=== PATIENT | male | born 1955 | race Caucasian/White ===

== ENCOUNTER 2018-09-14 08:57 | Emergency (ER) | payer OTHER ==
[~2018-09-14] VITALS: Ht 165.1 cm; Wt 99.8 kg
[~2018-09-14 08:57] MED LIST: ACET-7604 PO
--- NOTE | 2018-09-14 08:57 | NUR ---
PATIENT TO BED 4 BY EMS AT THIS TIME.
[2018-09-14 09:07] VITALS: BP 176/86
[2018-09-14] MEDS ORDERED: LISI-420 PO (09:14)
--- NOTE | 2018-09-14 09:18 | NUR ---
PT TO ED BIBA FOR C/O URINARY FREQUENCY X TODAY. PT DENIES BURNING OR PAIN UPON URINATION. PT DENIES ABD PAIN. NO DISTENTION NOTED. PT HAS SLURRED SPEECH FROM CVA X 1 YR AGO. PT PLACED INTO BED, PENDING MD DE LEÓN.
--- NOTE | 2018-09-14 10:17 | NUR ---
# 14 FR Urinary catheter inserted utilizing sterile technique. Immediate return of 100 ml YELLOW/CLEAR urine noted. Urine sample collected and sent to lab. Pt tolerated procedure WELL.
[2018-09-14 10:26] LABS: APPEARANCE,URINE CLEAR (CLEAR); BILIRUBIN,URINE NEGATIVE (NEGATIVE); BLOOD, URINE NEGATIVE (NEGATIVE); COLOR,URINE YELLOW (YELLOW); LEUKOCYTE ESTERASE ,URINE NEGATIVE (NEGATIVE); NITRITE, URINE NEGATIVE (NEGATIVE); UGLUCOSE NEGATIVE (NEGATIVE)
--- NOTE | 2018-09-14 11:26 | NUR ---
PT PENDING D/C. ATTEMPTING TO FIND RIDE HOME FOR PT.
--- NOTE | 2018-09-14 11:30 | NUR ---
MESSAGE LEFT TO , MAURO, BY BURNER OPERATOR. WILL CONTINUE TO ATTEMPT TO CONTACT.
--- NOTE | 2018-09-14 11:51 | NUR ---
2ND ATTEMPT TO CONTACT MAURO, MESSAGE LEFT BY RN. CALLBACK NUMBER: [phone]
--- NOTE | 2018-09-14 12:25 | NUR ---
PRESENT AT BEDSIDE. REVIEWED INFORMATION WITH HER. CONFIRMED SHE WOULD DIRVE PT HOME.
[2018-09-14 12:36] VITALS: BP 176/88
--- NOTE | 2018-09-14 12:36 | NUR ---
Patient discharged with v/s stable. Written and verbal after care instructions given and explained. Patient verbalized understanding. Ambulatory with steady gait. All questions addressed prior to discharge. Advised to follow up with PMD.
== END 2018-09-14 12:36 | disposition home or self-care (01) ==
LOC: MED 08:57
DX: R35.0 Frequency of micturition (principal); E11.9 Type 2 diabetes mellitus without complications; I10 Essential (primary) hypertension; Z79.891 Long term (current) use of opiate analgesic; Z86.73 Personal history of transient ischemic attack (TIA), and cerebral infarction without residual deficits; Z79.899 Other long term (current) drug therapy
CPT/HCPCS: 81003; 87086; 99283; C1758

== ENCOUNTER 2019-12-26 16:10 | Emergency (ER) | payer OTHER ==
[~2019-12-26] VITALS: Ht 170.2 cm; Wt 105.2 kg
[~2019-12-26 16:10] MED LIST changes: +LISI-420 PO
--- NOTE | 2019-12-26 16:16 | NUR ---
BIBA TAKEN TO BED 4
[2019-12-26 16:19] VITALS: BP 146/64
--- NOTE | 2019-12-26 16:27 | NUR ---
biba from assisted living care with c/o frequent urination . Pt aox 4, afibrile ,sce, flat soft abdomen. pmhxs cva , dm.
--- NOTE | 2019-12-26 17:00 | NUR ---
PT STARTED TO YELL STATING WANT TO GO HOME. PT STABLE V/S , AMBULATORY WITH STEADY GAIT.
--- NOTE | 2019-12-26 17:40 | NUR ---
DR POWERS AT BEDSIDE EVALUATING PT.
[2019-12-26 17:56] LABS: APPEARANCE,URINE CLEAR (CLEAR); BILIRUBIN,URINE NEGATIVE (NEGATIVE); BLOOD, URINE NEGATIVE (NEGATIVE); COLOR,URINE YELLOW (YELLOW); LEUKOCYTE ESTERASE ,URINE NEGATIVE (NEGATIVE); NITRITE, URINE NEGATIVE (NEGATIVE); UGLUCOSE NEGATIVE (NEGATIVE)
[2019-12-26 18:40] VITALS: BP 146/64
--- NOTE | 2019-12-26 18:42 | NUR ---
Patient discharged with v/s stable. Written and verbal after care instructions given and explained. Patient verbalized understanding. Ambulatory with to care home. All questions addressed prior to discharge. Advised to follow up with PMD.Dr bliss and cara thacker informed and aware.
== END 2019-12-26 18:42 | disposition home or self-care (01) ==
LOC: MED 16:10
DX: R35.0 Frequency of micturition (principal); E11.9 Type 2 diabetes mellitus without complications; I10 Essential (primary) hypertension; F17.200 Nicotine dependence, unspecified, uncomplicated; Z79.899 Other long term (current) drug therapy; Z86.73 Personal history of transient ischemic attack (TIA), and cerebral infarction without residual deficits
CPT/HCPCS: 81002; 81003; 99283

== ENCOUNTER 2019-12-27 10:05 | Emergency (ER) | payer OTHER ==
--- NOTE | 2019-12-27 10:09 | NUR ---
pt refused to be seen---stated wanted a ride back home informed pt we do not give rides home and if wishes to see doctor for any medical emergency he may. he said no, and ambulated out of the ER with steady gait. and gas charger aware
== END 2019-12-27 10:09 | disposition left against medical advice (07) ==
LOC: MED 10:05
DX: Z53.21 Procedure and treatment not carried out due to patient leaving prior to being seen by health care provider (principal)

== ENCOUNTER 2020-03-20 17:46 | Emergency (ER) | payer OTHER ==
[~2020-03-20] VITALS: Ht 165.1 cm; Wt 95.3 kg
[2020-03-20 17:52] VITALS: BP 145/78
--- NOTE | 2020-03-20 18:10 | NUR ---
PT BIBA FOR FALL PRONELY ON THE STREET. SUPERFICIAL ABRASIONS ON MARGARET KNEE NOTICED. PT DENIES CP, SOB, OR DIZZINESS AT THIS TIME. PT HAS SLURRED SPEECH BUT CAN ANWER QURSTIONS OR FOLLOW COMMANDS. A&OX3 UPON ARRIVAL. PT AFIBRILE , PINK PALPEBRAL CONJUNCTIVA , ANICTERIC SCLERA , SCE , ROUND SOFT ABDOMEN . PMH: HEART ATTACK, STROKE, DM MEDS: PT CANNOT RECALL
--- NOTE | 2020-03-20 18:59 | NUR ---
Pt requesting his be called, attempted to call. No answer. Will attemp to call again.
--- NOTE | 2020-03-20 19:05 | NUR ---
PT WALK OUT OF ROOM YELLING TO JUAN HIS ,PT IS UNCOOPERATIVE , LUIS CAMACHO TALKING TO PT.
[2020-03-20] MEDS ORDERED: NACL 0.9% 500 ML IV ONE (19:15)
--- NOTE | 2020-03-20 19:15 | NUR ---
PATIENT ELOPED FROM FACILITY. DISCHARGE INSTRUCTIONS NOT GIVEN TO PATIENT. DR CADENA NOTIFIED.LUIS MOMIN INFORMED AND AWARE.
== END 2020-03-20 19:15 | disposition left against medical advice (07) ==
LOC: MED 17:46
DX: S80.219A Abrasion, unspecified knee, initial encounter (principal); Z53.21 Procedure and treatment not carried out due to patient leaving prior to being seen by health care provider; X58.XXXA Exposure to other specified factors, initial encounter; Y93.89 Activity, other specified; Y92.89 Other specified places as the place of occurrence of the external cause; Y99.8 Other external cause status
CPT/HCPCS: 93005

== ENCOUNTER 2020-09-22 21:19 | Emergency (ER) | payer OTHER ==
[~2020-09-22] VITALS: Ht 175.3 cm; Wt 95.3 kg
[~2020-09-22 21:19] MED LIST changes: -LISI-420 PO; +LISI-487 PO
[2020-09-22 21:25] VITALS: BP 132/64
[2020-09-22 22:08] LABS: BASOPHILS # (AUTO) 0.1 K/uL (0.00-0.22); BASOPHILS % (AUTO) 0.7 % (0.0-2.0); EOSINOPHILS # (AUTO) 0.1 K/uL (0-0.4); EOSINOPHILS % (AUTO) 1.4 % (0.0-4.0); HEMATOCRIT 37.2 % (36-52); HEMOGLOBIN 12.7 g/dL (12.0-18.0); LYMPHOCYTES # (AUTO) 1.9 K/uL (2.0-11.5); LYMPHOCYTES % (AUTO) 18.4 % (20.5-51.1); MEAN CORPUSCULAR HEMOGLOBIN 32 pg (27-31); MEAN CORPUSCULAR HGB CONC 34 g/dL (33-37); MEAN CORPUSCULAR VOLUME 94.7 fL (80-94); MONOCYTES # (AUTO) 0.8 K/uL (0.8-1.0); MONOCYTES % (AUTO) 7.5 % (1.7-9.3); NEUTROPHILS # (AUTO) 7.4 K/uL (1.8-7.7); PLATELET COUNT (AUTO) 172 K/uL (140-450); RED BLOOD CELL COUNT(AUTO) 3.93 MIL/uL (4.20-6.10); RED CELL DISTRIBUTION WIDTH 14.5 % (11.6-13.7); WHITE BLOOD COUNT (AUTO) 10.3 K/uL (4.8-10.8)
[2020-09-22 22:22] LABS: ACETAMINOPHEN < 0.5 ug/ml (10-30); ALBUMIN 3.6 g/dL (3.4-5.0); ANION GAP 11.4 (8-16); ASPARTATE AMINOTRANSFERASE 12 U/L (15-37); CARBON DIOXIDE 28.9 mmol/L (21-32); CHLORIDE 104 mmol/L (98-107); CREATININE 1.4 mg/dL (0.6-1.3); GFR ARICAN-AMERICAN 65 mL/min (>90); GLUCOSE 176 mg/dL (74-106); POTASSIUM 3.3 mmol/L (3.5-5.1); SALICYLATE < 2.8 mg/dL (2.8-20.0); SODIUM SERUM 141 mmol/L (136-145); TOTAL BILIRUBIN 0.6 mg/dL (0.0-1.0); UREA NITROGEN, BLOOD 18 mg/dL (7-18)
[2020-09-22] MEDS ORDERED: POTASSIUM CHLORIDE 10 MEQ TABER PO ONE (23:20)
[2020-09-22 23:42] VITALS: BP 130/60
== END 2020-09-22 23:42 | disposition home or self-care (01) ==
LOC: MED 21:19
DX: R41.82 Altered mental status, unspecified (principal); R41.0 Disorientation, unspecified; E11.9 Type 2 diabetes mellitus without complications; I10 Essential (primary) hypertension; Z86.73 Personal history of transient ischemic attack (TIA), and cerebral infarction without residual deficits
CPT/HCPCS: 36415; 70450; 80053; 82140; 84484; 85025; 93005; 99285; G0480; G0482